=== PATIENT | male | born 1990 | race Hispanic/Latino ===

== ENCOUNTER 2023-03-13 15:55 | Emergency (ER) | payer OTHER ==
[~2023-03-13] VITALS: Ht 170.2 cm; Wt 95.7 kg
[2023-03-13] MEDS ORDERED: TETANUS/DIPHTHERIA TOXOID [ADULT] 0.5 ML VIAL IM ONE (16:47)
[2023-03-13] MEDS ORDERED: 0.9%NACL 1000ML 1,000 ML IV SCH (17:00)
[2023-03-13] MEDS ORDERED: CEFTRIAXONE 2GM VIAL IVPB ONE (17:00)
[2023-03-13] MEDS ORDERED: ONDANSETRON 4MG INJ IVP ONE (17:00)
[2023-03-13] MEDS ORDERED: MORPHINE 4 MG SYG IVP ONE (17:00)
[2023-03-13 18:41] VITALS: BP 158/92; PULSE 67; RESP 20; O2SAT 99
[2023-03-13] MEDS ORDERED: CEPH500B PO (18:45)
== END 2023-03-13 19:25 | disposition home or self-care (01) ==
LOC: EDH 15:55
DX: S61.217A Laceration without foreign body of left little finger without damage to nail, initial encounter (principal); X58.XXXA Exposure to other specified factors, initial encounter; Y93.89 Activity, other specified; Y92.89 Other specified places as the place of occurrence of the external cause; Y99.8 Other external cause status
CPT/HCPCS: 99284; 96374; 96375; 36415; 90714; 73140; 90471; 12001; 86317; J7030; J0696; J2405; J2270

== ENCOUNTER 2023-03-27 09:32 | Emergency (ER) | payer OTHER ==
[~2023-03-27] VITALS: Ht 157.5 cm; Wt 90.7 kg
[~2023-03-27 09:32] MED LIST: CEPH500B PO
[2023-03-27 11:09] VITALS: BP 116/76; PULSE 55; RESP 17; O2SAT 98
== END 2023-03-27 11:10 | disposition home or self-care (01) ==
LOC: EDH 09:32
DX: S61.217D Laceration without foreign body of left little finger without damage to nail, subsequent encounter (principal); Z48.02 Encounter for removal of sutures; X58.XXXD Exposure to other specified factors, subsequent encounter
CPT/HCPCS: 99282